=== PATIENT | male | born 1965 | race Caucasian/White ===

== ENCOUNTER 2021-01-19 14:48 | Emergency (ER) | payer SELFPAY | END 2021-01-19 16:08 | disposition left against medical advice (07) | LOC: JD.ED 14:48 | DX: L02.419 Cutaneous abscess of limb, unspecified (principal); Z53.21 Procedure and treatment not carried out due to patient leaving prior to being seen by health care provider ==

== ENCOUNTER 2021-01-20 03:28 | Emergency (ER) | payer SELFPAY ==
--- NOTE | 2021-01-20 04:25 | EDM.PDOC ---
ED HPI GENERAL MEDICAL PROBLEM - General Chief Complaint: Skin Complaint Stated Complaint: ABSESS INNER THIGH Time Seen by Provider: 01/20/21 03:47 Source of Information: Reports: Patient History Limitations: Reports: No Limitations - History of Present Illness INITIAL COMMENTS - FREE TEXT/NARRATIVE: Mr. Mccartney is a pleasant 55-year-old gentleman who now presents the ED stating that he developed a "boil" on his right scrotum a few months ago. He pinched it, and expressed some pus. The abscess resolved, but recurred again about 1 week ago. He again tried to pop it, again getting some pus out, but none since. Since then, it has continued to get larger and more painful. No recent fever. The patient states that, in addition to keeping it clean with soap and water, he has been applying hydrogen peroxide and Vicks VapoRub. The patient last ate around 18:00 yesterday evening, 01/19/2021. Here in the ED, the patient's initial BP is found to be elevated 166/100, otherwise, he is hemodynamically stable, afebrile, saturating 96% on room air. He appears to be relatively comfortable, in no acute distress. Other than the right scrotal infection, the patient denies having a recent fever, chills, sore throat, ear pain, nasal or sinus congestion, cough, dyspnea, chest pain, palpitations, nausea, vomiting, constipation, diarrhea, abdominal pain, urinary symptoms, recent weight gain or weight loss, recent bloody bowel movements or black bowel movements, recent joint aches, headaches, or rashes. The patient lives in [place], here in [place] for work. He states that he has not seen a doctor in about 20 years. He has not received a COVID vaccination. Right Groin Pain Score (Numeric/FACES): 1 - Related Data Allergies Allergy/AdvReac Type Severity Reaction Status Date / Time No Known Allergies Allergy Verified 01/20/21 03:52 Home Meds: Home Meds . [No Known Home Meds] 01/20/21 [History] Past Medical History Cardiovascular History: Reports: CAD - Past Surgical History HEENT Surgical History: Reports: Oral Surgery (dental extractions) Cardiovascular Surgical History: Reports: Coronary Artery Stent (x 1), Other (See Below) (Coronary angiogram x 1) Social & Family History - Tobacco Use Tobacco Use Status *Q: Current Every Day Tobacco User Years of Tobacco use: 38 Packs/Tins Daily: 1 Tobacco Use Comment: Started smoking 1981 - Alcohol Use Alcohol Use History: Yes Alcohol Use Frequency: Rarely - Recreational Drug Use Recreational Drug Use: Yes Drug Use in Last 12 Months: Yes Recreational Drug Type: Reports: Marijuana/Hashish (last smoked Jul 2020) - Living Situation & Occupation Living situation: Reports: Single, with Significant Other (Girlfriend) 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 ED EXAM, GENERAL - Physical Exam Exam: See Below Exam Limited By: No Limitations General Appearance: Alert, WD/WN, No Apparent Distress GI/Abdominal: Normal Bowel Sounds, Soft, Non-Tender, No Organomegaly, No Distention, No Abnormal Bruit, No Mass (Male) Exam: Circumcised, Other (Approximately 9 cm diameter area of soft swelling to the right scrotum, with associated erythema. There is some desquamation in the center of the swelling. The entire area of swelling is tender to palpation.). No: Inguinal Lymphadenopathy, Testicular Tenderness (L), Testicular Tenderness (R) Course - Vital Signs Last Recorded V/S: Last Vital Signs Temp 36.2 C 01/20/21 03:50 Pulse 89 01/20/21 03:50 Resp 16 01/20/21 03:50 BP 166/100 H 01/20/21 03:50 Pulse Ox 96 01/20/21 03:50 - Re-Assessments/Exams Free Text/Narrative Re-Assessment/Exam: 01/20/21 04:20 The patient has a large right scrotal abscess, measuring approximately 9 cm in diameter. This is not an I&D that can be done in the ED. It will need to be drained in the operating room. I have ordered a CBC, CMP, and ultrasound of the scrotum. In the event that the patient needs to go to the OR or be transferred to a different facility, I have also ordered a swab for the SARS-CoV-2 virus. We will keep him NPO. 01/20/21 04:43 After I saw Mr. Mccartney, I entered orders and saw another patient. When I exited out of the other patient's room, I was notified that Mr. Mccartney was refusing all labs and wanted to talk to me, however, before I was able to get in talk to him, he eloped the ED. I will cancel all of the orders. Departure - Departure Time of Disposition: 04:43 Disposition: Eloped 07 Condition: Fair Clinical Impression: Scrotal abscess - Discharge Information *PRESCRIPTION DRUG MONITORING PROGRAM REVIEWED*: Not Applicable *COPY OF PRESCRIPTION DRUG MONITORING REPORT IN PATIENT ZAKIA: Not Applicable Referrals: PCP,None [Primary Care Provider] - Forms: ED Department Discharge Sepsis Event Note (ED) - Focused Exam Vital Signs: Vital Signs Temp Pulse Resp BP Pulse Ox 01/20/21 03:50 36.2 C 89 16 166/100 H 96
== END 2021-01-20 04:45 | disposition left against medical advice (07) ==
LOC: JD.ED 03:28
DX: N49.2 Inflammatory disorders of scrotum (principal); I25.10 Atherosclerotic heart disease of native coronary artery without angina pectoris; F17.210 Nicotine dependence, cigarettes, uncomplicated
CPT/HCPCS: 99282